=== PATIENT | male | born 1990 | race Caucasian/White ===

== ENCOUNTER 2022-04-28 04:22 | Emergency (ER) | payer SELFPAY ==
[2022-04-28] MEDS ORDERED: Sodium Chloride 0.9% 2.5 ML Syringe FLUSH PRN (04:34)
[2022-04-28] MEDS ORDERED: Sodium Chloride 0.9% 10 ML Syringe FLUSH PRN (04:34)
[2022-04-28] MEDS ORDERED: Ondansetron 4 MG/2 ML SDV IVPUSH ONE (04:41)
[2022-04-28] MEDS ORDERED: Loperamide 2 MG Cap PO ONE (05:02)
[2022-04-28] MEDS ORDERED: Morphine 4 MG/ML VIAL IVPUSH ONE (05:04)
[2022-04-28] MEDS ORDERED: Sodium Chloride 0.9% 1,000 ML IV ONE ×2 (05:05→07:34)
[2022-04-28 05:15] LABS: BLOOD UREA NITROGEN,BUN 16 mg/dL (7.0-18.0); CHLORIDE,CL 102 mmol/L (98-107); GLUCOSE RANDOM 104 mg/dL (74-106); LIPASE 63 U/L (73-393); POTASSIUM,K 3.8 mmol/L (3.5-5.1); SODIUM,NA 141 mmol/L (136-148)
[2022-04-28 05:18] LABS: ESTIMATED GFR 82 mL/min (>60)
[2022-04-28] MEDS ORDERED: Iopamidol 755 MG/ML 500 ML Multipack Bottle IVPUSH ONE (05:28)
== END 2022-04-28 09:07 | disposition home or self-care (01) ==
LOC: MW.ED 04:22
DX: R10.12 Left upper quadrant pain (principal); R19.7 Diarrhea, unspecified
CPT/HCPCS: 36415; 71045; 74177; 80053; 80307; 83690; 85025; 96361; 96374; 96375; 99284; A9270; J2270; J2405; J7030; Q9967

== ENCOUNTER 2024-06-03 08:33 | Emergency (ER) | payer SELFPAY ==
[2024-06-03] MEDS ORDERED: Sodium Chloride 0.9% 2.5 ML Syringe FLUSH PRN (08:40)
[2024-06-03] MEDS ORDERED: Sodium Chloride 0.9% 10 ML Syringe FLUSH PRN (08:40)
[2024-06-03] MEDS: Ondansetron 4 MG/2 ML SDV IVPUSH ONE (08:57)
[2024-06-03] MEDS: Sodium Chloride 0.9% 1,000 ML IV ONE ×2 (08:57→10:23)
[2024-06-03 09:00] LABS: BASOPHILS ABSOLUTE AUTO 0.04 K/uL (0.00-0.20); BASOPHILS PERCENT AUTO 0.6 % (0.0-1.0); EOSINOPHILS ABSOLUTE AUTO 0.12 K/uL (0.00-0.45); EOSINOPHILS PERCENT AUTO 1.9 % (0.0-6.0); HEMATOCRIT 44.4 % (42.0-52.0); HEMOGLOBIN 15.7 g/dL (14.0-18.0); IMMATURE GRAN ABSOLUTE AUTO 0.01 K/uL (0.00-0.05); IMMATURE GRAN PERCENT AUTO 0.2 % (0.0-0.4); LYMPHOCYTES ABSOLUTE AUTO 2.12 K/uL (1.00-4.80); LYMPHOCYTES PERCENT AUTO 33.6 % (24.0-44.0); MEAN CORPUSCULAR HEMOGLOBIN 30.5 pg (28.0-32.0); MEAN CORPUSCULAR HGB CONC 35.4 g/dL (32.0-36.0); MEAN CORPUSCULAR VOLUME 86.4 fL (83.0-99.0); MEAN PLATELET VOLUME 10.2 fL (9.4-12.4); MONOCYTES ABSOLUTE AUTO 0.53 K/uL (0.00-0.80); MONOCYTES PERCENT AUTO 8.4 % (0.0-8.0); NEUTROPHILS ABSOLUTE AUTO 3.49 K/uL (1.80-7.70); NEUTROPHILS PERCENT AUTO 55.3 % (41.0-71.0); PLATELET COUNT,PLT 192 K/uL (150-400); RED BLOOD CELL COUNT 5.14 M/uL (4.52-5.90); WHITE BLOOD CELL COUNT,WBC 6.31 K/uL (3.9-11.3)
[2024-06-03 09:21] LABS: A/G RATIO 1.2 (0.9-1.6); ALBUMIN 4.1 g/dL (3.4-5.0); BILIRUBIN TOTAL 0.4 mg/dL (0.2-1.0); CALCIUM 8.9 mg/dL (8.5-10.1); CARBON DIOXIDE,CO2 28.3 mmol/L (21.0-32.0); EST CRCL DRUG DOSING (CG) 110.86 mL/min; POTASSIUM,K 3.9 mmol/L (3.5-5.1); PROTEIN TOTAL,TP 7.5 g/dL (6.4-8.2)
[2024-06-03] MEDS: Ketorolac 30 MG/ML SDV IVPUSH ONE (09:27)
== END 2024-06-03 12:03 | disposition home or self-care (01) ==
LOC: MW.ED 08:33
DX: A05.9 Bacterial foodborne intoxication, unspecified (principal); K52.9 Noninfective gastroenteritis and colitis, unspecified; Z75.8 Other problems related to medical facilities and other health care
CPT/HCPCS: 36415; 80053; 83690; 85025; 96361; 96374; 96375; 99284; J1885; J2405; J7030